=== PATIENT | male | born 1965 | race Asian ===

== ENCOUNTER 2017-10-10 14:43 | Emergency (ER) | payer SELFPAY ==
[~2017-10-10] VITALS: Ht 172.7 cm; Wt 78.0 kg
[2017-10-10] MEDS ORDERED: KETOROLAC 30MG/ML VIAL IM ONE (16:15)
[2017-10-10] MEDS ORDERED: BACITRACIN ZINC OINT UDPKT TOP ONE (16:15)
[2017-10-10] MEDS ORDERED: HYDROCODONE/ACETAMINOPHEN 5/325MG TABLET PO ONE (16:15)
[2017-10-10 16:18] VITALS: BP 154/109
== END 2017-10-10 17:51 | disposition home or self-care (01) ==
LOC: ER 14:58
DX: S39.012A Strain of muscle, fascia and tendon of lower back, initial encounter (principal); S00.31XA Abrasion of nose, initial encounter; R51 Headache; M54.2 Cervicalgia; M25.552 Pain in left hip; M25.512 Pain in left shoulder; R03.0 Elevated blood-pressure reading, without diagnosis of hypertension; V43.52XA Car driver injured in collision with other type car in traffic accident, initial encounter; Y93.89 Activity, other specified; Y92.488 Other paved roadways as the place of occurrence of the external cause; M50.323 Other cervical disc degeneration at C6-C7 level; M79.605 Pain in left leg
CPT/HCPCS: 72040; 72100; 73502; 96372; 99284; J1885